=== PATIENT | male | born 1950 | race Two or more races ===

== ENCOUNTER 2023-11-30 13:43 | Outpatient (CLI) | payer OTHER ==
[~2023-11-30 13:43] MED LIST: ENALAPRIL; FARXIGA; LEVOTHYROXINE; METFORMIN HCL1000 M2
== END 2023-11-30 13:57 | disposition home or self-care (01) ==
LOC: RAD 13:43
PROVIDERS: ATTEND Internal Medicine
DX: S30.0XXA Contusion of lower back and pelvis, initial encounter (principal); X58.XXXA Exposure to other specified factors, initial encounter; R55 Syncope and collapse

== ENCOUNTER 2023-12-01 09:05 | Outpatient (CLI) | payer OTHER | END 2023-12-01 09:06 | disposition home or self-care (01) | LOC: NUCLEAR 09:05 | DX: R55 Syncope and collapse (principal) ==

== ENCOUNTER → 2023-12-01 | Outpatient (CLI) | payer OTHER | END | disposition home or self-care (01) | LOC: NUCLEAR 08:24 | DX: R55 Syncope and collapse (principal) ==

== ENCOUNTER 2023-12-06 05:58 | Day surgery (SDC) | payer OTHER ==
[2023-11-30 10:23] LABS: PH,URINE 5.5 (5.0-8.0); URINE BILIRRUBIN Negative (NEGATIVE); URINE BLOOD Negative; URINE COLOR Yellow; URINE KETONE Trace (NEGATIVE); URINE LEUKOCYTE Trace; URINE NITRATE Negative; URINE PROTEIN Negative (NEGATIVE)
[2023-11-30 10:24] LABS: URINE BACTERIA 263.2 uL (0.0-1933); URINE EPITHELIAL CELLS 31.5 uL (0.0-38.8); URINE WBC 93.9 uL (0.0-23.2)
[2023-11-30 10:34] LABS: HEMATOCRIT 46.6 % (39.0-48.0); HEMOGLOBIN 16.2 g/dL (13-16.00); MEAN CELL VOLUME 87.7 fL (80.0-100.00); MEAN CORPUSCULAR HEMOGLOBIN 30.6 pg (27.00-32.0); MEAN CORPUSCULAR HGB CONC 34.9 g/dl (32.0-36.0); PLATELET COUNT 188 K/uL (150-450); RED BLOOD COUNT 5.31 M/uL (4.00-6.00); RED CELL DISTRIBUTION WIDTH 14.6 % (11.5-14.5)
[2023-11-30 10:38] LABS: URINE APPEARANCE CLEAR; URINE CAST 0.45 uL (0.0-1.40); URINE GLUCOSE >=1000 MG/DL (NEGATIVE)
[2023-11-30 10:48] LABS: INR 1.06; PARTIAL THROMBOPLASTIN TIME 29.1 SECONDS (22.0-34.0); PROTHROMBIN TIME 11.5 SECONDS (9.0-11.5)
[2023-11-30 11:09] LABS: ALBUMIN 4.1 gm/dL (3.4-5.0); BILIRUBIN TOTAL 1.49 mg/dL (0.3-1.2); CALCIUM 9.9 mg/dL (8.5-10.1); CREATININE SERUM 0.94 mg/dL (0.70-1.30); GFR 79.11; GLOBULINA 3.8 G/DL (2.4-3.5); POTASSIUM 4.75 mEq/L (3.5-5.1); TOTAL PROTEIN 7.9 gm/dL (6.4-8.2)
[~2023-12-06] VITALS: Ht 188 cm; Wt 113.4 kg
[2023-12-06] MEDS ORDERED: SUGAMMADEX SODIUM 200 MG/2 ML VIAL IV SCH (09:15)
[2023-12-06] MEDS ORDERED: CEFAZOLIN SODIUM 1,000 MG VIAL IV SCH (09:15)
[2023-12-06] MEDS ORDERED: FARXIGA10 MG (10:24)
[2023-12-06] MEDS ORDERED: OPTIMAL D31250 MCG (10:24)
[2023-12-06] MEDS ORDERED: ATORVASTATIN CA10 MG (10:24)
[2023-12-06] MEDS ORDERED: ENALAPRIL MALEA10 MG (10:24)
[2023-12-06] MEDS ORDERED: LEVOTHYROXINE175 MCG (10:24)
[2023-12-06] MEDS ORDERED: MORPHINE SULFATE 4 MG/ML VIAL IV ONE ×2 (12:40→13:10)
== END 2023-12-06 16:00 | disposition home or self-care (01) ==
LOC: SURH 05:58 → CIR.AMB 05:58 → O/R 05:58 → SURH 07:00 → EDSTATUS 08:45 → CIR.AMB 16:00 → O/R 16:00
PROVIDERS: ATTEND Surgery
DX: K43.0 Incisional hernia with obstruction, without gangrene (principal)
CPT/HCPCS: 49594; C1781